=== PATIENT | female | born 1975 | race Caucasian/White ===

== ENCOUNTER 2017-08-24 12:24 | Outpatient (CLI) | payer BC ==
[2017-08-24 13:06] VITALS: BP 112/73
[2017-08-24] MEDS ORDERED: BRETHINE SUB-Q ONE (13:33)
[2017-08-24] MEDS ORDERED: LACTATED RINGERS 500 ML IV ONE (13:59)
[2017-08-24 14:16] LABS: Bacteria,Urine 1+ /HPF (Negative); Bilirubin,Urine NEG (Negative); Blood,Urine NEG (Negative); Color,Urine Straw (Yellow); Nitrite,Urine NEG (Negative); Protein,Urine <15 mg/dL mg/dL (Negative); Urobilinogen,Urine < 2.0 mg/dL (<2.0)
== END 2017-08-24 15:30 | disposition home or self-care (01) ==
LOC: TRG 12:24
PROVIDERS: ATTEND Obstetrics & Gynecology
DX: O09.523 Supervision of elderly multigravida, third trimester (principal); O47.03 False labor before 37 completed weeks of gestation, third trimester; Z3A.32 32 weeks gestation of pregnancy
CPT/HCPCS: 36415; 59025; 81001; 82731; 87591; J3105; J7120

== ENCOUNTER 2017-10-13 20:26 | Observation (INO) | payer BC ==
--- NOTE | 2017-10-13 21:47 | History and Physical Report ---
History of Present Illness Date of examination: 10/13/17 Date of admission: 10/13/17 20:26 Chief complaint: Induction of labor History of present illness: Pt is a 42yo BF EDC 10/14/13 EGA 39 6/7 weeks presents for induction of labor. She received care @ [facility] since 7 weeks and course is significant for a history of macrosomia, depression and a right breast mass. records are available and GBS is Negative. Past History Past Medical History: no pertinent history Past Surgical History: no surgical history Family/Genetic History: none Social history: no significant social history, single - Obstetrical History Expected Date of Delivery: 10/14/17 Actual Gestation: 39 Week(s) 6 Day(s) : 3 Medications and Allergies Allergies Allergy/AdvReac Type Severity Reaction Status Date / Time peanut Allergy Rash Verified 04/16/13 12:13 Pork/Porcine Containing Allergy Rash Verified 04/16/13 12:10 Products Home Medications Medication Instructions Recorded Confirmed Last Taken Type Clindamycin [Clindamycin CAP] 300 mg PO Q8H #20 cap 04/16/13 Unknown Rx Ibuprofen [Motrin] 800 mg PO TID PRN 04/16/13 04/16/13 Unknown History Sulfamethoxazole/Trimethoprim 1 each PO BID 04/16/13 04/16/13 Unknown History [Bactrim DS] Review of Systems All systems: negative - Vital Signs Vital signs: Vital Signs Pulse BP 90 143/86 10/13/17 21:18 10/13/17 21:18 Temp Pulse Resp BP Pulse Ox 100 H 143/86 98 10/13/17 21:41 10/13/17 21:18 10/13/17 21:41 - Physical Exam Breasts: Positive: deferred Cardiovascular: Regular rate Lungs: Positive: Clear to auscultation Abdomen: Positive: normal appearance Genitourinary (Female): Positive: normal external genitalia Vagina: Positive: normal moisture Uterus: Positive: enlarged Extremities: Positive: normal - Obstetrical FHR: category 1 Uterine Contraction Monitor Mode: External Cervical Dilatation: 1 Cervical Effacement Percentage: 50 station: -2 Uterine Contraction Pattern: Irregular Results All other labs normal. Assessment and Plan - Patient Problems (1) 39 weeks gestation of Onset Date: 10/13/17 Current Visit: Yes Status: Acute Plan to address problem: A: IUP @ 39 6/7 weeks AMA GBS Negative P: Admit to L&D for cervidil/pitocin induction of labor (2) AMA (advanced maternal age) multigravida 35+ Onset Date: 10/13/17 Current Visit: Yes Status: Acute Qualifiers: Trimester: third trimester Qualified Code(s): O09.523 - Supervision of elderly multigravida, third trimester
[2017-10-13] MEDS ORDERED: SUBLIMAZE ONE (21:52)
[2017-10-13] MEDS ORDERED: XYLOCAINE 2% INFILTRATI ONE (22:45)
[2017-10-13] MEDS ORDERED: BRETHINE IVP PRN (22:45)
[2017-10-13] MEDS ORDERED: BRETHINE SUB-Q PRN (22:45)
[2017-10-13] MEDS ORDERED: ZOFRAN IV PRN (22:45)
[2017-10-13] MEDS ORDERED: SUBLIMAZE IV PRN (22:45)
[2017-10-13] MEDS ORDERED: STADOL IV PRN (22:45)
[2017-10-13] MEDS ORDERED: ePHEDrine SULFATE IV PRN (22:45)
[2017-10-13] MEDS ORDERED: CERVIDIL VG ONE (22:45)
[2017-10-13] MEDS ORDERED: AMBIEN PO PRN (22:45)
[2017-10-13] MEDS ORDERED: MINERAL OIL PO PRN (22:45)
[2017-10-13] MEDS ORDERED: PITOCin/NS 20 UNIT/1000ML DRIP 20 UNITS/1,000 ML BAG IV SCH (23:00)
[2017-10-13] MEDS ORDERED: PITOCin/NS 30 UNIT/500ML 30 UNITS/500 ML BAG IV SCH (23:00)
[2017-10-13] MEDS ORDERED: LACTATED RINGERS 1,000 ML IV SCH (23:00)
[2017-10-14 01:17] LABS: Hematocrit 36.4 % (30.3-42.9); Hemoglobin 12.3 gm/dl (10.1-14.3); Mean Corpuscular HGB Conc 34 % (30-34); Mean Corpuscular Hemoglobin 29 pg (28-32); Mean Corpuscular Volume 84 fl (79-97); Platelet Count 235 K/mm3 (140-440); Red Blood Count 4.32 M/mm3 (3.65-5.03); Red Cell Distribution Width 14.2 % (13.2-15.2)
[2017-10-14 08:07] VITALS: BP 114/71
--- NOTE | 2017-10-14 15:20 | Ultrasound Report ---
BIOPHYSICAL PROFILE: INDICATION: well being. COMPARISON: None similar at this institution. TECHNIQUE: Transabdominal ultrasound with Doppler interrogation. 2 - breathing movements 2 - movements 2 - posture and tone 2 - Qualitative amniotic fluid volume 8 - TOTAL SCORE OF POSSIBLE 8 Heart Rate (bpm) 169 CONCLUSION: Findings, as above.
== END 2017-10-14 16:40 | disposition home or self-care (01) ==
LOC: LD 20:26 → INTOOBSV 20:26
PROVIDERS: ADMIT Obstetrics & Gynecology; ATTEND Obstetrics & Gynecology
DX: O09.523 Supervision of elderly multigravida, third trimester (principal); O99.343 Other mental disorders complicating pregnancy, third trimester; F32.9 Major depressive disorder, single episode, unspecified; Z3A.39 39 weeks gestation of pregnancy
CPT/HCPCS: 36415; 76819; 85027; 86592; 86850; 86900; 86901; G0378; G0379; J3010; J7120